=== PATIENT | male | born 1985 | race Caucasian/White ===

== ENCOUNTER 2016-11-17 09:55 | Emergency (ER) | payer BC, MEDICAID ==
[2016-11-17 10:07] VITALS: BP 147/89
[2016-11-17] MEDS ORDERED: Gabapentin 300 MG Cap PO ONE (10:08)
[2016-11-17] MEDS ORDERED: Ketorolac 10 MG Tab PO ONE (10:08)
--- NOTE | 2016-11-17 10:12 | EDM.PDOC ---
ED UPPER BACK/NECK PAIN/INJURY - General Chief Complaint: Back Pain or Injury Stated Complaint: [id number] SEVERE BACK PAIN Time Seen by Provider: 11/17/16 10:07 Source of Information: Reports: Patient History Limitations: Reports: No limitations - History of Present Illness INITIAL COMMENTS - FREE TEXT/NARRATIVE: 31 yo white male c/o right shoulder/scapula muscle tenderness X 2 days after shoveling rocks. Pt. denies trauma Symptom Onset Date: 11/15/16 Symptom Onset Time: 17:00 Timing/Duration: Reports: Day(s): Location: Reports: other (right shoulder/scapula) Quality: Reports: Ache Severity: moderate Place of Occurrence: home Worsens with: Reports: Movement Context: Reports: lifting - Related Data Allergies/ADRs: Allergies Allergy/AdvReac Type Severity Reaction Status Date / Time No Known Allergies Allergy Verified 11/17/16 10:02 Home Meds: Home Meds . [No Known Home Meds] 11/17/16 [History] ED ROS GENERAL - Review of Systems Review Of Systems: See Below Constitutional: Reports: no symptoms HEENT: Reports: No symptoms Respiratory: Reports: No Symptoms Cardiovascular: Reports: No symptoms Endocrine: Reports: no symptoms GI/Abdominal: Reports: No symptoms Musculoskeletal: Reports: shoulder pain, muscle pain (right scapula) Skin: Reports: no symptoms Neurological: Reports: No Symptoms Psychiatric: Reports: No symptoms Hematologic/Lymphatic: Reports: no symptoms Immunologic: Reports: no symptoms ED EXAM, UPPER BACK/NECK PAIN - Physical Exam Exam: See Below Exam Limited By: No limitations General Appearance: alert, WD/WN, no apparent distress Eye Exam: bilateral eye: PERRL Nose Exam: normal inspection Throat/Mouth Exam: Normal inspection Head Exam: atraumatic Neck Exam: non-tender Cardiovascular/Respiratory: regular rate, rhythm Back Exam: normal inspection, other (tenderness to right scapula muscle) Extremities: other 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, no motor/sensory deficits Psychiatric: normal affect Skin Exam: Normal color, Warm/dry Lymphatic: no adenopathy Course - Vital Signs Last Recorded V/S: Last Vital Signs Temp 36.6 C 11/17/16 09:56 Pulse 75 11/17/16 09:56 Resp 16 11/17/16 09:56 BP 147/89 H 11/17/16 09:56 Pulse Ox 100 11/17/16 09:56 - Orders/Labs/Meds Meds: Medications Discontinued Medications Generic Name Dose Route Start Last Admin Trade Name Teresita PRN Reason Stop Dose Admin Gabapentin 300 mg 11/17/16 10:08 11/17/16 10:17 Neurontin PO 11/17/16 10:09 300 mg ONETIME ONE Administration Ketorolac Tromethamine 10 mg 11/17/16 10:08 11/17/16 10:13 Toradol PO 11/17/16 10:09 10 mg ONETIME ONE Administration Departure - Departure Time of Disposition: 10:28 Disposition: Home, Self-Care 01 Condition: good Clinical Impression: Muscle strain of right scapular region Qualifiers: Encounter type: initial encounter Qualified Code(s): S46.911A - Strain of unspecified muscle, fascia and tendon at shoulder and upper arm level, right arm , initial encounter Forms: ED Department Discharge Additional Instructions: Rest Apply Ice pack to area TID X 15mins Take Medications as prescribed only: Naproxsyn 500mg BID w/ food # 30 Neurontin 300mg BID # 20 F/U w/ PCP
== END 2016-11-17 10:49 | disposition home or self-care (01) ==
LOC: DL.ED 09:55
DX: S46.911A Strain of unspecified muscle, fascia and tendon at shoulder and upper arm level, right arm, initial encounter (principal); X50.9XXA Other and unspecified overexertion or strenuous movements or postures, initial encounter; Y93.H1 Activity, digging, shoveling and raking; Y92.009 Unspecified place in unspecified non-institutional (private) residence as the place of occurrence of the external cause
CPT/HCPCS: 99283; A9270

== ENCOUNTER 2017-01-27 15:50 | Emergency (ER) | payer MEDICAID ==
--- NOTE | 2017-01-27 15:58 | EDM.PDOC ---
ED HPI GENERAL MEDICAL PROBLEM - General Chief Complaint: ENT Problem Stated Complaint: SEVERE SORE THROAT, BODY ACHES Time Seen by Provider: 01/27/17 15:57 Source of Information: Reports: Patient, RN, RN Notes Reviewed History Limitations: Reports: No Limitations - History of Present Illness INITIAL COMMENTS - FREE TEXT/NARRATIVE: Complaining of severe sore throat since last night. Subjective fever in the night and mild nausea. Denies cough, abdominal pain, headache or rash. Severity: Severe Improves with: Reports: None Worsens with: Reports: None Associated Symptoms: Reports: No Other Symptoms Throat Pain Score (Numeric/FACES): 7 - Related Data Allergies Allergy/AdvReac Type Severity Reaction Status Date / Time No Known Allergies Allergy Verified 01/27/17 16:02 Home Meds: Home Meds . [No Known Home Meds] 11/17/16 [History] Past Medical History HEENT History: Reports: None Cardiovascular History: Reports: None Respiratory History: Reports: None Gastrointestinal History: Reports: None Genitourinary History: Reports: None Musculoskeletal History: Reports: Other (See Below) Other Musculoskeletal History: right shoulder torn rotar cuff. No surgery. left achillies tendon torn and repaired Neurological History: Reports: None Psychiatric History: Reports: ADHD Endocrine/Metabolic History: Reports: None Hematologic History: Reports: None Oncologic (Cancer) History: Reports: None Dermatologic History: Reports: None - Past Surgical History HEENT Surgical History: Reports: None Cardiovascular Surgical History: Reports: None Respiratory Surgical History: Reports: None GI Surgical History: Reports: None Social & Family History - Tobacco Use Smoking Status *Q: Never Smoker Second Hand Smoke Exposure: No - Recreational Drug Use Recreational Drug Use: No ED ROS ENT - Review of Systems Review Of Systems: ROS reveals no pertinent complaints other than HPI. ED EXAM, ENT - Physical Exam Exam: See Below Exam Limited By: No Limitations General Appearance: Alert, WD/WN, No Apparent Distress Eye Exam: Bilateral Eye: Normal Inspection Ears: Normal External Exam, Normal Canal, Hearing Grossly Normal, Normal TMs Nose: Normal Inspection, Normal Mucousa, No Blood Mouth/Throat: Other (beefy pharyngeal erythema with tonsillar exudates) Head: Atraumatic, Normocephalic Neck: Normal Inspection, Supple, Non-Tender, Full Range of Motion Respiratory/Chest: No Respiratory Distress, Lungs Clear, Normal Breath Sounds, No Accessory Muscle Use, Chest Non-Tender Cardiovascular: Normal Peripheral Pulses, Regular Rate, Rhythm, No Edema, No Gallop, No JVD, No Murmur, No Rub Back: Normal Inspection, Full Range of Motion Extremities: Normal Inspection, Normal Range of Motion, Non-Tender, No Pedal Edema, Normal Capillary Refill Neurological: Alert, Oriented, CN II-XII Intact, Normal Cognition, Normal Gait, Normal Reflexes, No Motor/Sensory Deficits Psychiatric: Normal Affect, Normal Mood Skin: Warm, Dry, Intact, Normal Color, No Rash Course - Vital Signs Last Recorded V/S: Last Vital Signs Temp 36.6 C 01/27/17 16:04 Pulse 99 01/27/17 16:04 Resp 18 01/27/17 16:04 BP 110/74 01/27/17 16:04 Pulse Ox 100 01/27/17 16:04 - Orders/Labs/Meds Labs: Rapid strep: Positive. Meds: Medications Discontinued Medications Generic Name Dose Route Start Last Admin Trade Name Freq PRN Reason Stop Dose Admin Penicillin G Procaine/Benzathine 2.4 millunits 01/27/17 16:02 Bicillin C-R 600/600 IM 01/27/17 16:03 ONETIME ONE Departure - Departure Time of Disposition: 16:12 Disposition: Home, Self-Care 01 Condition: good Clinical Impression: Strep pharyngitis - Discharge Information Instructions: Strep Throat, [id number] Forms: ED Department Discharge Additional Instructions: RX: Amoxicillin 500mg. Frequent salt water gargle until improved. Follow up in clinic if not improved in 2 days.
[2017-01-27] MEDS ORDERED: Penicillin G Benzathine/Procaine 600-600 1.2 Millunits/2 ML Syringe IM ONE ×2 (16:02→16:14)
[2017-01-27 16:06] VITALS: BP 110/74
== END 2017-01-27 16:30 | disposition home or self-care (01) ==
LOC: DL.ED 15:50
DX: J02.0 Streptococcal pharyngitis (principal)
CPT/HCPCS: 87430; 96372; 99283; J0558

== ENCOUNTER 2017-04-12 10:30 | Emergency (ER) | payer MEDICAID ==
[2017-04-12 10:43] VITALS: BP 132/71
[2017-04-12] MEDS ORDERED: Penicillin G Benzathine/Procaine 600-600 1.2 Millunits/2 ML Syringe IM ONE (10:50)
--- NOTE | 2017-04-12 10:55 | EDM.PDOC ---
ED HPI GENERAL MEDICAL PROBLEM - General Chief Complaint: ENT Problem Stated Complaint: STREP BACK Time Seen by Provider: 04/12/17 10:45 Source of Information: Reports: Patient History Limitations: Reports: No Limitations - History of Present Illness INITIAL COMMENTS - FREE TEXT/NARRATIVE: This 32 yo male patient reports to the ED with a 3 day history of increased sore throat. The patient reports a history of strep in the past. Onset Date: 04/09/17 Duration: Constant, Getting Worse Location: Reports: Neck Quality: Reports: Ache, Sharp Severity: Severe Improves with: Reports: None Worsens with: Reports: None - Related Data Allergies Allergy/AdvReac Type Severity Reaction Status Date / Time No Known Allergies Allergy Verified 04/12/17 10:34 Home Meds: Home Meds . [No Known Home Meds] 11/17/16 [History] Past Medical History HEENT History: Reports: None Cardiovascular History: Reports: None Respiratory History: Reports: None Gastrointestinal History: Reports: None Genitourinary History: Reports: None Musculoskeletal History: Reports: Other (See Below) Other Musculoskeletal History: right shoulder torn rotar cuff. No surgery. left achillies tendon torn and repaired Neurological History: Reports: None Psychiatric History: Reports: ADHD Endocrine/Metabolic History: Reports: None Hematologic History: Reports: None Immunologic History: Reports: None Oncologic (Cancer) History: Reports: None Dermatologic History: Reports: None - Past Surgical History Head Surgeries/Procedures: Reports: None HEENT Surgical History: Reports: None Cardiovascular Surgical History: Reports: None Respiratory Surgical History: Reports: None GI Surgical History: Reports: None Social & Family History - Tobacco Use Smoking Status *Q: Former Smoker Used Tobacco, but Quit: Yes Month Tobacco Last Used: 2015 Second Hand Smoke Exposure: No - Caffeine Use Caffeine Use: Reports: Soda - Recreational Drug Use Recreational Drug Use: No ED ROS ENT - Review of Systems Review Of Systems: ROS reveals no pertinent complaints other than HPI. ED EXAM, ENT - Physical Exam Exam: See Below Exam Limited By: No Limitations General Appearance: Alert, WD/WN, Moderate Distress Eye Exam: Bilateral Eye: EOMI, Normal Inspection, PERRL Ears: Normal External Exam, Normal Canal, Hearing Grossly Normal, Normal TMs Nose: Normal Inspection Mouth/Throat: Normal Gums, Normal Lips, Normal Teeth, Tonsillar Erythema, Tonsillar Exudates, Tonsillar Swelling Head: Atraumatic, Normocephalic Neck: Normal Inspection, Supple, Full Range of Motion, Lymphadenopathy (L), Lymphadenopathy (R) Respiratory/Chest: No Respiratory Distress, Lungs Clear, Normal Breath Sounds, No Accessory Muscle Use, Chest Non-Tender Cardiovascular: Normal Peripheral Pulses, Regular Rate, Rhythm, No Edema, No Gallop, No JVD, No Murmur, No Rub GI/Abdominal: Normal Bowel Sounds, Soft, Non-Tender, No Organomegaly, No Distention, No Abnormal Bruit, No Mass (Male) Exam: Deferred Rectal (Males) Exam: Deferred Back: Normal Inspection, Full Range of Motion Extremities: Normal Inspection, Normal Range of Motion, Non-Tender, No Pedal Edema, Normal Capillary Refill Neurological: Alert, Oriented, CN II-XII Intact, Normal Cognition, Normal Gait, Normal Reflexes, No Motor/Sensory Deficits Psychiatric: Normal Affect, Normal Mood Skin: Warm, Dry, Intact, Normal Color, No Rash Lymphatic: No Adenopathy Course - Vital Signs Last Recorded V/S: Last Vital Signs Temp 37.2 C 04/12/17 10:42 Pulse 89 04/12/17 10:42 Resp 18 04/12/17 10:42 BP 132/71 04/12/17 10:42 Pulse Ox 100 04/12/17 10:42 - Orders/Labs/Meds Orders: Active Orders 24 hr Category Date Time Status STREP SCRN A RAPID W CULT CONF [RM] Stat Lab 04/12/17 10:40 Received Departure - Departure Time of Disposition: 10:53 Disposition: Home, Self-Care 01 Condition: Fair Clinical Impression: Strep pharyngitis - Discharge Information Instructions: Strep Throat, [id number] Care Plan Goals: The patient was advised of the examination and lab results during the visit. The patient was given an injection of Bicillin while in the ED. The patient was discharged with a script for Azithromycin (250 mg) #6 to take 2 by mouth on day 1 then 1 by mouth on days 2-5. If the patient has any additional symptoms or concerns, the patient should follow-up with his primary care facility or return to the emergency department. - My Orders Last 24 Hours: My Active Orders 04/12/17 10:40 STREP SCRN A RAPID W CULT CONF [RM] Stat - Assessment/Plan Last 24 Hours: My Active Orders 04/12/17 10:40 STREP SCRN A RAPID W CULT CONF [RM] Stat
== END 2017-04-12 11:01 | disposition home or self-care (01) ==
LOC: DL.ED 10:30
DX: J02.0 Streptococcal pharyngitis (principal); Z87.891 Personal history of nicotine dependence
CPT/HCPCS: 87430; 96372; 99283; J0558

== ENCOUNTER 2017-11-25 15:42 | Emergency (ER) | payer MEDICAID ==
[2017-11-25 17:17] VITALS: BP 123/77
[2017-11-25] MEDS ORDERED: Ciprofloxacin 500 MG Tab PO ONE (18:23)
--- NOTE | 2017-11-25 18:27 | EDM.PDOC ---
Scribed by Meaghan Pineda 11/25/17 1826 for Jensen Cartwright MD ED HPI GENERAL MEDICAL PROBLEM - General Chief Complaint: Abdominal Pain Stated Complaint: [id number] ABDOMINAL PAIN MINIMAL BACK PAIN Time Seen by Provider: 11/25/17 17:10 Source of Information: Reports: Patient, RN, RN Notes Reviewed History Limitations: Reports: No Limitations - History of Present Illness INITIAL COMMENTS - FREE TEXT/NARRATIVE: Patient presents with onset of abdominal pain at RLQ/periumbilical at 1430 hours today. Patient states he was nauseated. Denies vomiting, diarrhea, constipation, fever or chills. Admits to mild dysuria. Onset: Today Duration: Getting Worse Location: Reports: Abdomen Quality: Reports: Ache Severity: Moderate Improves with: Reports: None Worsens with: Reports: None Associated Symptoms: Reports: No Other Symptoms Right Middle Abdomen Pain Score (Numeric/FACES): 3 - Related Data Allergies Allergy/AdvReac Type Severity Reaction Status Date / Time No Known Allergies Allergy Verified 11/25/17 17:07 Home Meds: Home Meds . [No Known Home Meds] 11/17/16 [History] Past Medical History HEENT History: Reports: None Cardiovascular History: Reports: None Respiratory History: Reports: None Gastrointestinal History: Reports: None Genitourinary History: Reports: None Musculoskeletal History: Reports: Other (See Below) Other Musculoskeletal History: right shoulder torn rotar cuff. No surgery. left achillies tendon torn and repaired Neurological History: Reports: None Psychiatric History: Reports: ADHD Endocrine/Metabolic History: Reports: None Hematologic History: Reports: None Immunologic History: Reports: None Oncologic (Cancer) History: Reports: None Dermatologic History: Reports: None - Past Surgical History Head Surgeries/Procedures: Reports: None HEENT Surgical History: Reports: None Cardiovascular Surgical History: Reports: None Respiratory Surgical History: Reports: None GI Surgical History: Reports: None Social & Family History - Tobacco Use Smoking Status *Q: Former Smoker Used Tobacco, but Quit: Yes Month/Year Tobacco Last Used: 2015 Second Hand Smoke Exposure: No - Caffeine Use Caffeine Use: Reports: Soda - Recreational Drug Use Recreational Drug Use: No ED ROS GENERAL - Review of Systems Review Of Systems: ROS reveals no pertinent complaints other than HPI. ED EXAM, GI/ABD - Physical Exam Exam: See Below Exam Limited By: No Limitations General Appearance: Alert, WD/WN, No Apparent Distress Head: Atraumatic, Normocephalic Neck: Normal Inspection, Supple, Non-Tender, Full Range of Motion Respiratory/Chest: No Respiratory Distress, Lungs Clear, Normal Breath Sounds, No Accessory Muscle Use, Chest Non-Tender Cardiovascular: Normal Peripheral Pulses, Regular Rate, Rhythm, No Edema, No Gallop, No JVD, No Murmur, No Rub GI/Abdominal Exam: Normal Bowel Sounds, Soft, No Organomegaly, No Distention, No Abnormal Bruit, Pelvis Stable, Tender (right lower quadrant. No peritoneal signs.). No: Guarding, Rigid, Rebound (Male) Exam: Deferred Rectal (Males) Exam: Deferred Extremities: Normal Inspection, Normal Range of Motion, Non-Tender, Normal Capillary Refill, No Pedal Edema Neurological: Alert, Oriented, CN II-XII Intact, Normal Cognition, Normal Gait, Normal Reflexes, No Motor/Sensory Deficits Psychiatric: Normal Affect, Normal Mood Skin Exam: Warm, Dry, Intact, Normal Color, No Rash Course - Vital Signs Last Recorded V/S: Last Vital Signs Temp 37.7 C 11/25/17 17:08 Pulse 74 11/25/17 17:08 Resp 16 11/25/17 17:08 BP 123/77 11/25/17 17:08 Pulse Ox 96 11/25/17 17:08 - Orders/Labs/Meds Orders: Active Orders 24 hr Category Date Time Status AMYLASE [CHEM] Stat Lab 11/25/17 18:00 Received CHLAMYDIA AND GONORRHEA BY TMA Routine Lab 11/25/17 17:40 Received COMPREHENSIVE METABOLIC PN,CMP [CHEM] Stat Lab 11/25/17 18:00 Received CULTURE URINE [RM] Stat Lab 11/25/17 17:40 Received LIPASE [CHEM] Stat Lab 11/25/17 18:00 Received UA W/MICROSCOPIC [URIN] Stat Lab 11/25/17 17:40 Ordered Ciprofloxacin [Ciprofloxacin HCl] Med 11/25/17 18:23 Once 500 mg PO ONETIME ONE Labs: Laboratory Tests 11/25/17 11/25/17 Range/Units 17:40 18:00 WBC 16.0 H (5.0-10.0) 10^3/uL RBC 4.46 L (4.6-6.2) 10^6/uL Hgb 14.0 (14.0-18.0) g/dL Hct 41.0 (40.0-54.0) % MCV 91.9 (80-100) fL MCH 31.4 (27.0-34.0) pg MCHC 34.1 (33.0-35.0) g/dL Plt Count 232 (150-450) 10^3/uL Neut % (Auto) 80.3 H (42.2-75.2) % Lymph % (Auto) 11.5 L (20.5-50.1) % [place] % (Auto) 7.8 (2-8) % Eos % (Auto) 0.3 L (1.0-3.0) % Baso % (Auto) 0.1 (0.0-1.0) % Urine Color Yellow (YELLOW) Urine Appearance Cloudy (CLEAR) Urine pH 6.0 (5.0-9.0) Ur Specific [place] 1.025 (1.005-1.030) Urine Protein 100 H (NEGATIVE) Urine Glucose (UA) Negative (NEGATIVE) Urine Ketones 15 H (NEGATIVE) Urine Occult Blood Large H (NEGATIVE) Urine Nitrite Positive H (NEGATIVE) Urine Bilirubin Negative (NEGATIVE) Urine Urobilinogen 0.2 (0.2-1.0) mg/dL Ur Leukocyte Esterase Small H (NEGATIVE) Urine RBC >100 H /HPF Urine WBC 40-50 H (0-5/HPF) /HPF Ur Epithelial Cells Few /HPF Urine Bacteria Many H (0-FEW/HPF) /HPF Departure - Departure Time of Disposition: 18:24 Disposition: Home, Self-Care 01 Condition: Good Clinical Impression: UTI (urinary tract infection) Qualifiers: Urinary tract infection type: acute cystitis Hematuria presence: without hematuria Qualified Code(s): N30.00 - Acute cystitis without hematuria - Discharge Information Instructions: Urinary Tract Infection, Adult Forms: ED Department Discharge Additional Instructions: Rx: Cipro 500mg Follow up in clinic in 7 to 10 days for urine recheck. - My Orders Last 24 Hours: My Active Orders 11/25/17 17:40 CHLAMYDIA AND GONORRHEA BY TMA Routine CULTURE URINE [RM] Stat UA W/MICROSCOPIC [URIN] Stat 11/25/17 18:00 AMYLASE [CHEM] Stat COMPREHENSIVE METABOLIC PN,CMP [CHEM] Stat LIPASE [CHEM] Stat 11/25/17 18:23 Ciprofloxacin [Ciprofloxacin HCl] 500 mg PO ONETIME ONE - Assessment/Plan Last 24 Hours: My Active Orders 11/25/17 17:40 CHLAMYDIA AND GONORRHEA BY TMA Routine CULTURE URINE [RM] Stat UA W/MICROSCOPIC [URIN] Stat 11/25/17 18:00 AMYLASE [CHEM] Stat COMPREHENSIVE METABOLIC PN,CMP [CHEM] Stat LIPASE [CHEM] Stat 11/25/17 18:23 Ciprofloxacin [Ciprofloxacin HCl] 500 mg PO ONETIME ONE I have read and agree with the documentation that has been completed regarding this visit. By signing this record, I attest that the documentation was completed in my physical presence and is an accurate record of the encounter.
[2017-11-25 18:28] LABS: CHLORIDE,CL 103 mmol/L (101-111); SODIUM,NA 138 mmol/L (135-145)
== END 2017-11-25 18:37 | disposition home or self-care (01) ==
LOC: DL.ED 15:42
DX: N30.00 Acute cystitis without hematuria (principal); Z87.891 Personal history of nicotine dependence
CPT/HCPCS: 36415; 80053; 81001; 82150; 83690; 85025; 87086; 87491; 87591; 99283; A9270; 87088; 87186

== ENCOUNTER 2019-05-23 08:57 | Emergency (ER) | payer MEDICAID ==
[2019-05-23 09:06] VITALS: BP 123/86; PULSE 74
[2019-05-23] MEDS ORDERED: Lidocaine 5% Oint 35.44 GM Tube TOP ONE (09:19)
--- NOTE | 2019-05-23 09:32 | EDM.PDOC ---
<Darya Squires - Last Filed: 05/23/19 09:26> ED HPI GENERAL MEDICAL PROBLEM - General Chief Complaint: Neck Problem Stated Complaint: NECK HURTING Time Seen by Provider: 05/23/19 09:27 Source of Information: Reports: Patient History Limitations: Reports: No Limitations - History of Present Illness INITIAL COMMENTS - FREE TEXT/NARRATIVE: Patient is a 34 year old male presenting to the ED with left sided neck pain for one week. He noticed this after waking up and thinks he was sleeping the wrong way. It bothers him at bedtime, and while turning his head to the left and down. He also has been getting headaches in the back of the head due to this. Denies recent URI, fever, or any other symptoms. He reports being in a good state of health overall, and his only daily medication is Paxil. Neck Pain Score (Numeric/FACES): 4 - Related Data Allergies Allergy/AdvReac Type Severity Reaction Status Date / Time No Known Allergies Allergy Verified 05/23/19 09:01 Home Meds: Home Meds PARoxetine HCl [Paroxetine HCl] 30 mg PO DAILY 05/23/19 [History] Past Medical History HEENT History: Reports: None Cardiovascular History: Reports: None Respiratory History: Reports: None Gastrointestinal History: Reports: None Genitourinary History: Reports: None Musculoskeletal History: Reports: Other (See Below) Other Musculoskeletal History: right shoulder torn rotar cuff. No surgery. left achillies tendon torn and repaired Neurological History: Reports: None Psychiatric History: Reports: ADHD Endocrine/Metabolic History: Reports: None Hematologic History: Reports: None Immunologic History: Reports: None Oncologic (Cancer) History: Reports: None Dermatologic History: Reports: None - Infectious Disease History Infectious Disease History: Reports: None - Past Surgical History Head Surgeries/Procedures: Reports: None HEENT Surgical History: Reports: None Cardiovascular Surgical History: Reports: None Respiratory Surgical History: Reports: None GI Surgical History: Reports: None Social & Family History - Family History Family Medical History: Noncontributory - Tobacco Use Smoking Status *Q: Light Tobacco Smoker Years of Tobacco use: 1 Packs/Tins Daily: 0.1 - Caffeine Use Caffeine Use: Reports: Coffee - Recreational Drug Use Recreational Drug Use: No ED ROS GENERAL - Review of Systems Review Of Systems: ROS reveals no pertinent complaints other than HPI. Constitutional: Reports: No Symptoms HEENT: Reports: No Symptoms Respiratory: Reports: No Symptoms Cardiovascular: Reports: No Symptoms Endocrine: Reports: No Symptoms GI/Abdominal: Reports: No Symptoms Musculoskeletal: Reports: Neck Pain Skin: Reports: No Symptoms Neurological: Reports: No Symptoms Psychiatric: Reports: Other (Takes Paxil ) Hematologic/Lymphatic: Reports: No Symptoms Immunologic: Reports: No Symptoms ED EXAM, GENERAL - Physical Exam Exam: See Below Exam Limited By: No Limitations General Appearance: Alert, No Apparent Distress Eye Exam: Bilateral Eye: EOMI Ears: Normal External Exam Nose: Normal Inspection Throat/Mouth: Normal Inspection Head: Atraumatic, Normocephalic Neck: Limited Range of Motion, Other (nontender to deep palpation, no sign of injury or infection, limited ROM to the left and [id number] due to neck stiffness/pain) Respiratory/Chest: No Respiratory Distress, Lungs Clear, Normal Breath Sounds, No Accessory Muscle Use Cardiovascular: Regular Rate, Rhythm Course - Vital Signs Last Recorded V/S: Last Vital Signs Temp 97.8 F 05/23/19 09:02 Pulse 74 05/23/19 09:02 Resp 16 05/23/19 09:02 BP 123/86 05/23/19 09:02 Pulse Ox 100 05/23/19 09:02 - Orders/Labs/Meds Meds: Medications Discontinued Medications Generic Name Dose Route Start Last Admin Trade Name Teresita PRN Reason Stop Dose Admin Lidocaine HCl 0 gm 05/23/19 09:19 05/23/19 09:30 Lidocaine 5% [facility] 05/23/19 09:20 1 gm ONETIME ONE Administration Departure - Departure Time of Disposition: 09:35 Disposition: Home, Self-Care 01 Clinical Impression: Neck pain - Discharge Information *PRESCRIPTION DRUG MONITORING PROGRAM REVIEWED*: Not Applicable *COPY OF PRESCRIPTION DRUG MONITORING REPORT IN PATIENT CARY: Not Applicable Instructions: Neck Exercises Forms: ED Department Discharge Additional Instructions: RX:Flexeril 5mg by mouth at bedtime as needed. May cause drowsiness, do not drink alcohol or drive while under the influence of this drug - Assessment/Plan Assessment:: Assessment and Plan: Myofascial pain in the left side of the neck, muscle tension - Use heating pad, deep tissue massage - OTC topicals such as icy hot or capzacin (wash hands after use) - Ordered lidocaine 5% ointment to be used here in ED and then patient can take home. - Prescribed flexeril 5mg (10 tabs with no refill) to be used at bedtime. Warned about drowsiness. - Patient is in agreement with the above plan. <Jensen Cartwright - Last Filed: 05/23/19 16:19> Course - Re-Assessments/Exams Free Text/Narrative Re-Assessment/Exam: 05/23/19 16:19 I saw and evaluated the patient. Discussed with resident and agree with resident s findings and plan as documented in the residents note.
== END 2019-05-23 09:52 | disposition home or self-care (01) ==
LOC: DL.ED 08:57
DX: M54.2 Cervicalgia (principal); F90.9 Attention-deficit hyperactivity disorder, unspecified type; F17.210 Nicotine dependence, cigarettes, uncomplicated; Z79.899 Other long term (current) drug therapy
CPT/HCPCS: 99283; A9270

== ENCOUNTER 2021-03-18 12:33 | Emergency (ER) | payer MEDICAID | END 2021-03-18 12:45 | disposition left against medical advice (07) | LOC: DL.ED 12:33 | DX: Z53.21 Procedure and treatment not carried out due to patient leaving prior to being seen by health care provider (principal) ==